=== PATIENT | female | born 1960 | race African-American/Black ===

== ENCOUNTER 2021-08-31 14:10 | Emergency (ER) | payer SELFPAY ==
[2021-08-31 14:16] VITALS: TEMP 98.2
[2021-08-31] MEDS ORDERED: ACETAMINOPHEN 325 MG TABLET (FP) PO ONE (15:28)
[2021-08-31] MEDS ORDERED: METOCLOPRAMIDE HCL INJECTION 10 MG/2 ML VIAL IVPB ONE (16:05)
[2021-08-31] MEDS ORDERED: SODIUM CHLORIDE 0.9% 500 ML INFUS.BAG IV ONE (16:07)
[2021-08-31 16:41] LABS: CALCIUM 9.2 mg/dL (8.5-10.1)
[2021-08-31 16:42] LABS: ALBUMIN 3.9 g/dl (3.4-5.0); BLOOD UREA NITROGEN 11.7 mg/dL (7-18); HEMATOCRIT 42.7 % (32.4-45.2); HEMOGLOBIN 14.6 GM/dL (10.7-15.3); MCH 27.1 pg (25.7-33.7); MCHC 34.2 g/dl (32.0-36.0); MEAN CELL VOLUME 79.3 fl (80-96); MEAN PLT VOLUME 9.7 fl (7.5-11.1); RBC 5.38 M/mm3 (3.60-5.2); RDW 14.2 % (11.6-15.6); WHITE BLOOD COUNT 8.4 K/mm3 (4.0-10.0)
[2021-08-31 16:44] LABS: CREATININE 0.9 mg/dL (0.55-1.3)
[2021-08-31] MEDS ORDERED: ACETAMINOPHEN 325 MG TABLET (FP) ONE (16:44)
[2021-08-31] MEDS ORDERED: METOCLOPRAMIDE HCL INJECTION 10 MG/2 ML VIAL ONE (16:44)
[2021-08-31 16:46] LABS: BILIRUBIN,TOTAL 0.5 mg/dL (0.2-1)
[2021-08-31 17:33] LABS: BLOOD UREA NITROGEN 11.1 mg/dL (7-18)
[2021-08-31 17:36] LABS: CREATININE 0.9 mg/dL (0.55-1.3)
[2021-08-31 17:44] LABS: ANISOCYTOSIS 1+; MACROCYTOSIS 0
[2021-08-31 17:46] VITALS: BP 140/82; PULSE 60
[2021-08-31 17:46] LABS: PLATELET COUNT 148 10^3/uL (134-434)
== END 2021-08-31 20:01 | disposition home or self-care (01) ==
LOC: JER 14:10
PROC: 3E033GC Introduction of Other Therapeutic Substance into Peripheral Vein, Percutaneous Approach (ICD-10-PCS; principal; 2021-08-31)
DX: R07.9 Chest pain, unspecified (principal)
CPT/HCPCS: 36415; 70450-TC; 71046-TC-FY; 80048; 80053; 83690; 84484; 85025; 93005; 93010; 99285-25